=== PATIENT | male | born 1950 | race Caucasian/White ===

== ENCOUNTER 2020-02-21 18:25 | Outpatient (REF) | payer MEDICARE, MEDICAID, SELFPAY ==
[2020-02-21 19:24] LABS: HGB 13.7 g/dL (13.5-17.5); MCH 35.4 pg (27.0-33.0); MCV 95.6 fL (80-95); MPV 10.2 fL (8.0-11.0); Platelet Count 260 10^3/uL (130-400); RBC 3.87 10^6/uL (4.36-5.78); RDW 12.6 % (11.8-14.1); RDW-SD 43.8 fL; WBC 6.66 10^3/uL (4.4-10.8)
[2020-02-21 19:32] LABS: ALT 29 U/L (16-63); AST 20 U/L (15-37); Albumin 4.4 g/dL (3.4-5.0); Alkaline Phosphatase 133 U/L (46-116); Anion Gap 8.8 mmol/L (3-11); BUN 14 mg/dL (7-18); Bilirubin, Total 0.6 mg/dL (0.2-1.0); CO2 26.2 mmol/L (21.0-32.0); CREATININE 0.74 mg/dL (0.70-1.30); Chloride 84 mmol/L (98-107); Glucose 103 mg/dL (74-106); Potassium 4.2 mmol/L (3.5-5.1); Total Protein 7.4 g/dL (6.4-8.2)
[2020-02-21 19:35] LABS: TROPONIN-I < 0.5 ug/mL (4.0-12.0)
[2020-02-21 20:34] LABS: Sodium 119 mmol/L (136-145)
== END 2020-02-21 18:45 ==
LOC: NCHCN 18:25
PROVIDERS: PCP Physician Assistant Medical; Visit Provider Internal Medicine
DX: G50.0 Trigeminal neuralgia (principal); G35 Multiple sclerosis; Z51.81 Encounter for therapeutic drug level monitoring
CPT/HCPCS: 80053; 85027; 80156

== ENCOUNTER 2020-08-05 15:36 | Outpatient (REF) | payer MEDICARE, MEDICAID, SELFPAY ==
[2020-08-05 19:46] LABS: HCT 35.9 % (40.0-50.0); HGB 12.9 g/dL (13.5-17.5); MCH 35.6 pg (27.0-33.0); MCHC 35.9 % (32.0-36.0); MCV 99.2 fL (80-95); MPV 10.5 fL (8.0-11.0); Platelet Count 229 10^3/uL (130-400); RBC 3.62 10^6/uL (4.36-5.78); RDW 12.5 % (11.8-14.1); RDW-SD 45.3 fL; WBC 6.55 10^3/uL (4.4-10.8)
[2020-08-05 20:00] LABS: Anion Gap 5.6 mmol/L (3-11); BUN 16 mg/dL (7-18); CO2 28.4 mmol/L (21.0-32.0); CREATININE 0.8 mg/dL (0.70-1.30); Calcium 8.7 mg/dL (8.5-10.1); Chloride 94 mmol/L (98-107); Glucose 94 mg/dL (74-106); Potassium 4.6 mmol/L (3.5-5.1); Sodium 128 mmol/L (136-145); TROPONIN-I 9.2 ug/mL (4.0-12.0)
== END 2020-08-05 15:37 | disposition home or self-care (01) ==
LOC: NCHCN 15:36
PROVIDERS: PCP Physician Assistant Medical; Visit Provider Internal Medicine
DX: N31.9 Neuromuscular dysfunction of bladder, unspecified (principal); G35 Multiple sclerosis; G50.0 Trigeminal neuralgia; Z51.81 Encounter for therapeutic drug level monitoring; Z79.899 Other long term (current) drug therapy
CPT/HCPCS: 80048; 85027; 80156

== ENCOUNTER 2021-02-18 15:46 | Outpatient (REF) | payer MEDICARE, MEDICAID, SELFPAY ==
[2021-02-18 19:46] LABS: HCT 35.4 % (40.0-50.0); HGB 12.4 g/dL (13.5-17.5); MCH 35.1 pg (27.0-33.0); MCV 100.3 fL (80-95); MPV 10.9 fL (8.0-11.0); Platelet Count 229 10^3/uL (130-400); RBC 3.53 10^6/uL (4.36-5.78); RDW-SD 47.9 fL; WBC 6.24 10^3/uL (4.4-10.8)
[2021-02-18 20:02] LABS: Anion Gap 7.3 mmol/L (3-11); BUN 16 mg/dL (7-18); CO2 27.7 mmol/L (21.0-32.0); CREATININE 0.7 mg/dL (0.70-1.30); Calcium 8.3 mg/dL (8.5-10.1); Chloride 97 mmol/L (98-107); Glucose 90 mg/dL (74-106); Potassium 4.7 mmol/L (3.5-5.1); Sodium 132 mmol/L (136-145); TROPONIN-I 8.8 ug/mL (4.0-12.0)
== END 2021-02-18 15:47 | disposition home or self-care (01) ==
LOC: NCHCN 15:46
PROVIDERS: PCP Physician Assistant Medical; Visit Provider Internal Medicine
DX: G50.0 Trigeminal neuralgia (principal); I10 Essential (primary) hypertension; G35 Multiple sclerosis
CPT/HCPCS: 80048; 85027; 80156

== ENCOUNTER 2021-08-19 20:11 | Outpatient (REF) | payer MEDICARE, MEDICAID, SELFPAY ==
[2021-08-19 19:23] LABS: Abs Immature Grans 0.04 10^3/uL (0.0-0.06); Absolute Basophil Count 0.07 10^3/uL (0.0-0.2); Absolute Eosinophil Count 0.19 10^3/uL (0.0-0.7); Absolute Lymphocyte Count 0.86 10^3/uL (1.2-3.4); Absolute Monocyte Count 0.59 10^3/uL (0.1-0.8); Absolute Neutrophil Count 5.03 10^3/uL (1.2-6.7); Eosinophils % 2.8; Immature Grans % 0.6; Lymphocytes % 12.7; MCH 34.5 pg (27.0-33.0); MCHC 35.1 % (32.0-36.0); MCV 98 fL (80-95); MPV 10.8 fL (8.0-11.0); Monocytes % 8.7; Neutrophils % 74.2; Platelet Count 218 10^3/uL (130-400); RBC 3.77 10^6/uL (4.36-5.78); RDW-SD 46.8 fL; WBC 6.78 10^3/uL (4.4-10.8)
== END 2021-08-19 20:12 | disposition home or self-care (01) ==
LOC: NCHCN 20:11
PROVIDERS: PCP Physician Assistant Medical; Visit Provider Internal Medicine
DX: G35 Multiple sclerosis (principal); Z51.81 Encounter for therapeutic drug level monitoring; Z79.899 Other long term (current) drug therapy
CPT/HCPCS: 80156; 85025

== ENCOUNTER 2022-02-17 15:53 | Outpatient (REF) | payer MEDICARE, MEDICAID, SELFPAY ==
[2022-02-17 19:20] LABS: HCT 36.7 % (40.0-50.0); MCH 35.2 pg (27.0-33.0); MCHC 35.4 % (32.0-36.0); MCV 100 fL (80-95); MPV 10.6 fL (8.0-11.0); Platelet Count 220 10^3/uL (130-400); RBC 3.69 10^6/uL (4.36-5.78); RDW 12.5 % (11.8-14.1); RDW-SD 46.2 fL; WBC 6.48 10^3/uL (4.4-10.8)
[2022-02-17 19:39] LABS: BUN 20 mg/dL (7-18); CREATININE 0.8 mg/dL (0.70-1.30); Calcium 8.6 mg/dL (8.5-10.1); Chloride 95 mmol/L (98-107); Estimated GFR 95.21 (mL/min/1.73m2); Glucose 98 mg/dL (74-106); Potassium 4.8 mmol/L (3.5-5.1); Sodium 129 mmol/L (136-145); TROPONIN-I 9.6 ug/mL (4.0-12.0)
== END 2022-02-17 15:54 | disposition home or self-care (01) ==
LOC: NCHCN 15:53
PROVIDERS: PCP Physician Assistant Medical; Visit Provider Internal Medicine
DX: I10 Essential (primary) hypertension (principal); E87.1 Hypo-osmolality and hyponatremia; G50.0 Trigeminal neuralgia; Z51.81 Encounter for therapeutic drug level monitoring; Z79.899 Other long term (current) drug therapy
CPT/HCPCS: 80048; 85027; 80156

== ENCOUNTER → 2024-12-17 10:31 | Outpatient (BNVA) | payer MEDICARE, MEDICAID, SELFPAY | PROVIDERS: PCP Physician Assistant Medical; Referring Provider Physician Assistant Medical; Visit Provider Nurse Practitioner Gerontology | DX: G35 Multiple sclerosis (principal); N31.9 Neuromuscular dysfunction of bladder, unspecified; N39.0 Urinary tract infection, site not specified; R33.9 Retention of urine, unspecified; I10 Essential (primary) hypertension; Z43.5 Encounter for attention to cystostomy | CPT/HCPCS: 99205; 81002 ==

== ENCOUNTER → 2025-01-16 07:41 | Outpatient (BNVA) | payer MEDICARE, MEDICAID, SELFPAY | PROVIDERS: PCP Physician Assistant Medical; Referring Provider Physician Assistant Medical; Visit Provider Nurse Practitioner Gerontology | DX: R33.9 Retention of urine, unspecified (principal); N39.0 Urinary tract infection, site not specified; G35 Multiple sclerosis | CPT/HCPCS: 99212 ==